=== PATIENT | male | born 1965 | race Caucasian/White ===

== ENCOUNTER 2020-11-19 16:54 | Outpatient (CLI) | payer OTHER, SELFPAY | END 2020-11-19 16:55 | disposition home or self-care (01) | LOC: ANHCOVIDVC 16:54 | PROVIDERS: PCP Family Medicine | DX: Z23 Encounter for immunization (principal) | CPT/HCPCS: 0001A; 91300 ==

== ENCOUNTER 2020-12-10 16:55 | Outpatient (CLI) | payer OTHER, SELFPAY | END 2020-12-10 16:56 | disposition home or self-care (01) | LOC: ANHCOVIDVC 16:55 | PROVIDERS: PCP Family Medicine | DX: Z23 Encounter for immunization (principal) | CPT/HCPCS: 0002A; 91300 ==

== ENCOUNTER 2024-01-25 01:19 | Day surgery (SDC) | payer OTHER, SELFPAY ==
[2024-01-12 16:31] VITALS: BMI 29.9
[2024-01-25 06:19] VITALS: BP 123/79; PULSE 50; RESP 20; TEMP 36.4; O2SAT 100
[2024-01-25] MEDS: LACTATED RINGERS 1,000 ML 150 ML IV CONT (06:31)
--- NOTE | 2024-01-25 07:18 | WPDANESEPPF ---
Anes - Initial Pre Proc Eval Procedure: Operation Date: 01/25/24 07:30 Proposed Procedures p Colonoscopy - Glen Hathaway MD Date/Time: 01/25/24 07:18 Surgeon: Glen Hathaway MD Pre Op Diagnosis: Personal history colon polyps Patient Data Age: 58 Gender: M Height: 1.73 m Weight: 94 kg Last Vital Signs Temp 97.6 F 01/25/24 06:19 Pulse 50 L 01/25/24 06:19 Resp 20 01/25/24 06:19 BP 123/79 01/25/24 06:19 Pulse Ox 100 01/25/24 06:19 O2 Del Method Room Air 01/25/24 06:19 Allergies Allergy/AdvReac Type Severity Reaction Status Date / Time No Known Allergies Allergy Verified 01/25/24 06:18 Home Medications Medication Instructions Recorded Confirmed Type rosuvastatin 10 mg tablet 10 mg PO DAILY #90 tabs 11/01/23 01/12/24 Rx peg 3350-electrolytes 236 240 ml PO Q10M #4,000 mL 01/12/24 Rx gram-22.74 gram-6.74 gram-5.86 gram solution (Golytely) Patient hx anesthesia problems: none Family hx anesthesia problems: none Results Review: All pre-operative results and documents have been reviewed as part of the pre-operative evaluation. [facility] Past Medical History Medical History Acute sinusitis BMI 27.0-27.9,adult BMI 28.0-28.9,adult BMI 29.0-29.9,adult Elevated glucose Essential (primary) hypertension Mixed hyperlipidemia Surgical History Surgical History Hx of colonoscopy Family History Family History Father Cerebrovascular accident Family history of coronary artery disease Mother Hypertension Sibling Diabetes mellitus Malignant neoplasm of prostate Other Family history of malignant neoplasm Social History Social History Years smoked: 8 Smoking status: Former smoker Tobacco type: cigarettes Second hand tobacco smoke exposure: Yes Smoking end date: 09/12/11 Alcohol intake: never Substance use: never Substance use type: does not use Do You Feel Safe in your Home?: Yes Lack of Transportation: No Lack of Food: Never True Current Housing: I Have Housing Concerned About Future Housing: No Difficulty Paying Gas/Electric Bills: No Difficulty Paying for Meds: No Currently Unemployed: No Education: Trade/Vocational Certificate Difficulty w/ Childcare or Family Care: No Living arrangements: with family Occupation/Education: occupation 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 Informed Consent: The patient's anesthetic plan and its attendant risks and benefits were discussed with the patient/family/POA. Questions were solicited and answers provided to the satisfaction of the patient/family/POA.
--- NOTE | 2024-01-25 07:34 | PM.HPGS ---
History of Present Illness History of Present Illness Consent: Risks, benefits, and alternatives have been discussed and questions answered. Patient agrees to proceed with procedure. Chief complaint: Personal history colon polyps Narrative: Azael Glez is a 58 year old male with colon polyps 5 years ago Review of Systems Review of Systems: All systems reviewed & are unremarkable except as noted in HPI and below PMFSH Past Medical History Medical History (Updated 01/25/24 @ 07:35 by Glen Hathaway MD) Acute sinusitis Adenomatous colon polyp BMI 27.0-27.9,adult BMI 28.0-28.9,adult BMI 29.0-29.9,adult Elevated glucose Essential (primary) hypertension Mixed hyperlipidemia Surgical History Surgical History Hx of colonoscopy Family History Family History Father Cerebrovascular accident Family history of coronary artery disease Mother Hypertension Sibling Diabetes mellitus Malignant neoplasm of prostate Other Family history of malignant neoplasm Social History Social History Years smoked: 8 Smoking status: Former smoker Tobacco type: cigarettes Second hand tobacco smoke exposure: Yes Smoking end date: 09/12/11 Alcohol intake: never Substance use: never Substance use type: does not use Do You Feel Safe in your Home?: Yes Lack of Transportation: No Lack of Food: Never True Current Housing: I Have Housing Concerned About Future Housing: No Difficulty Paying Gas/Electric Bills: No Difficulty Paying for Meds: No Currently Unemployed: No Education: Trade/Vocational Certificate Difficulty w/ Childcare or Family Care: No Living arrangements: with family Occupation/Education: occupation 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 Gender identity (if verbalized by the patient): Male Spiritual care concerns: No Meds Home Medications and Allergies Home Medications Medication Instructions Recorded Confirmed Type rosuvastatin 10 mg tablet 10 mg PO DAILY #90 tabs 11/01/23 01/12/24 Rx peg 3350-electrolytes 236 240 ml PO Q10M #4,000 mL 01/12/24 Rx gram-22.74 gram-6.74 gram-5.86 gram solution (Golytely) Allergies Allergy/AdvReac Type Severity Reaction Status Date / Time No Known Allergies Allergy Verified 01/25/24 06:18 Vital Signs Vital Signs - 24 hr 01/25/24 06:19 Temperature 97.6 F Pulse Rate 50 L Respiratory Rate 20 Blood Pressure 123/79 Pulse Oximetry 100 Oxygen Delivery Room Air Exam Const: General: comfortable and no acute distress HENMT: Face/Nose/Sinus: Normal nares present Eyes: General: appearance normal, both eyes and all related structures Neck: Neck: no JVD Resp: Auscultation: clear to auscultation bilaterally Cardio: Rate: regular rate Rhythm: regular rhythm GI: Inspection: non-distended GI Palp: Yes Soft to palpation Skin: General skin exam: normal color Neuro: General: gait normal Speech: normal speech Extrem: General: normal to inspection Psych: Mental Status: mental status grossly normal Assessment and Plan Assessment and plan (1) Adenomatous colon polyp: Code(s): D12.6 - Benign neoplasm of colon, unspecified Status: Acute Assessment and Plan: colonoscopy
[2024-01-25 08:04] VITALS: BP 110/61; PULSE 51; RESP 19; O2SAT 97
[2024-01-25 08:14] VITALS: BP 99/65; PULSE 51; RESP 18; O2SAT 99
[2024-01-25 08:24] VITALS: BP 110/66; PULSE 55; RESP 16; O2SAT 99
== END 2024-01-25 08:38 | disposition home or self-care (01) ==
PROVIDERS: PCP Family Medicine; Visit Provider Internal Medicine Gastroenterology
PROC: 0DJD8ZZ Inspection of Lower Intestinal Tract, Via Natural or Artificial Opening Endoscopic (ICD-10-PCS; CPT 45378; principal; 2024-01-25 07:30)
DX: Z12.11 Encounter for screening for malignant neoplasm of colon (principal); D12.0 Benign neoplasm of cecum; K63.5 Polyp of colon; K57.30 Diverticulosis of large intestine without perforation or abscess without bleeding; K64.8 Other hemorrhoids; E78.2 Mixed hyperlipidemia; Z87.891 Personal history of nicotine dependence
CPT/HCPCS: 45385; 88305; J1596; J2371; J2704; J7120

== ENCOUNTER 2025-01-18 05:19 | Emergency (ER) | payer OTHER, SELFPAY ==
--- OUTSIDE RECORDS SUMMARY | 2025-01-18 05:21 | XMS_ITS | Continuity of Care Document ---
Author Organization [facility] Address [address] [place] [address] Phone Care Team Providers Care Industrial Relations Worker Name Role Phone Kem Flowers PT Unavailable Unavailable Procedures Procedure Date Hot or Cold Pack Therapeutic Exercise Therapeutic Activities Manual Therapy Therapeutic Exercise Therapeutic Activities Therapeutic Exercise Therapeutic Activities Manual Therapy Neuromuscular Re-Ed Hot or Cold Pack Therapeutic Exercise Therapeutic Activities Therapeutic Activities Therapeutic Exercise Advance Directives Directive Yes / No Effective Date File Name No Information Encounters Encounter Description Practice Location Reason(s) For Visit Diagnoses Date Provider Providers Copied on Encounter [facility], [address], [place], [place], [id number], tel:[phone] [facility] No Information Lionel Brownlee. . Referring Provider: Christopher Dainels [address], [place], [address]. tel:[phone] [facility] [address], [place], [place], [id number], [place] tel:[phone] [facility] No Information Lionel Brownlee. . Referring Provider: Christopher Daniels [address], [place], [address]. tel:[phone] [facility], [place], [place], [id number], [place] tel:[phone] [facility] No Information Lionel Brownlee. . Referring Provider: Christopher Daniels [facility] [address], [place], [address]. tel:[phone] [facility], [address] [place] [address], [place], [place], [id number], tel:[phone] [facility] No Information Lionel Brownlee. . Referring Provider: Mack Klein [address], [place], [address]. tel:[phone] [facility], [address] [place] [address], [place], [place], [id number], tel:[phone] [facility] No Information Lionel Brownlee. . Referring Provider: Christopher Daniels [facility] [address], [place], [address]. tel:[phone] Family History Family Member Type Diagnosis Age At Onset No Information Payers Payer name Insurance type Covered republican ID Authoriza tiradha(s) CCMSI [id number] [employer] [place] [id number] Social History Type Description Quantity Date Captured Comments Sex Male Smoking Status No Information Chief Complaint And Reason For Visit No Information Reason For Referral Reason For Referral No Information History Of Present Illness Encounter Date Complaint History Of Prese nt Illness No Information Functional Status Date Functional Assessmen t No Information Instructions Date Instruction Additional Infor mation No Information Assessments Type Assessment Date No Information Patient Care Teams Name Effective Dates (start - stop) Status Members No Information
--- OUTSIDE RECORDS SUMMARY | 2025-01-18 05:21 | XMS_ITS | Clinical Summary ---
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
--- OUTSIDE RECORDS SUMMARY | 2025-01-18 05:21 | XMS_ITS | Referral Summary ---
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
[2025-01-18 05:27] VITALS: BP 155/77; PULSE 61; RESP 15; TEMP 36.8; O2SAT 100
[2025-01-18 05:49] LABS: Basophils Percent Auto 0.4 % (0.2-1.2); Eosinophils Absolute Auto 0.1 K/mm3 (0-0.3); Eosinophils Percent Auto 2.1 % (0-4.4); Hematocrit 48.8 % (42.0-52.0); Hemoglobin 15.6 g/dL (14.0-18.0); Immature Granulocyte Absolute 0.01 K/mm3 (0.00-0.031); Immature Granulocyte Percent A 0.2 % (0-0.5); Lymphocytes Absolute Auto 1.35 K/mm3 (0.9-3.2); Mean Corpuscular Hemoglobin 31.8 pg (26-34); Mean Corpuscular Volume 99.4 fl (80-100); Mean Platelet Volume 9.8 fl (7.4-10.4); Monocytes Absolute Auto 0.4 K/mm3 (0.1-0.6); Neutrophils Absolute Auto 2.8 K/mm3 (1.3-6.7); Neutrophils Percent Auto 59.3 % (45.5-73.1); Platelet Count Result 150 k/mm3 (150-375); Red Blood Count 4.91 M/mm3 (4.6-6.20); Red Cell Distribution Width 12.7 % (11.5-14.5); White Blood Count 4.7 K/mm3 (4.5-10.0)
[2025-01-18] MEDS: SODIUM CHLORIDE 0.9% IV 1,000 ML 999 ML IV CONT (05:49)
--- OUTSIDE RECORDS SUMMARY | 2025-01-18 05:49 | XMS_ITS | Referral Summary ---
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
--- OUTSIDE RECORDS SUMMARY | 2025-01-18 05:49 | XMS_ITS | Continuity of Care Document ---
Author Organization [facility] Address [address] [place] [address] Phone Care Team Providers Care Engineer And Geologist Name Role Phone Kem Flowers PT Unavailable [...] Diagnoses Date Provider Providers Copied on Encounter [facility], [address], [place], [place], [id number], tel:[phone] [facility] No Information Lionel Brownlee. . Referring Provider: Christopher Daniels [address], [place], [address]. tel:[phone] [facility] [address], [place], [place], [id number], [place] tel:[phone] [facility] No Information Lionel Brownlee. . Referring Provider: Christopher Daniels [address], [place], [address]. tel:[phone] [facility], [place], [place], [id number], [place] tel:[phone] [employer] [place] [facility] No Information Lionel Brownlee. . Referring Provider: Christopher Daniels [facility] [address], [place], [address]. tel:[phone] [facility], [address] [place] [address], [place], [place], [id number], tel:[phone] [facility] No Information Lionel Brownlee. . Referring Provider: Mack Klein [address], [place], [address]. tel:[phone] [facility], [address] [place] [address], [place], [place], [id number], tel:[phone] [facility] No Information Lionel Brownlee. . Referring Provider: Christopher Daniels [facility] [address], [place], [address]. tel:[phone] Family History Family Member Type Diagnosis Age At Onset No Information Payers Payer name Insurance type Covered democrat ID Authoriza tiradha(s) CCMSI [id number] [employer]ign SP [id number] Social History Type Description Quantity Date Captured [...]
--- OUTSIDE RECORDS SUMMARY | 2025-01-18 05:49 | XMS_ITS | Clinical Summary ---
Author Organization 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
--- NOTE | 2025-01-18 05:54 | ED.NAVMDI ---
HPI - Nausea/Vomiting/Diarrhea General Chief complaint: Nausea/Vomiting/Diarrhea Stated complaint: diarrhea Time Seen by Provider: 01/18/25 05:36 Source: patient Mode of arrival: ambulatory Limitations: no limitations History of Present Illness HPI Narrative: 59-year-old with a history of hypertension, hyperlipidemia here with the complaints of having diarrhea for last 4 days. Patient states that he tried paqo-jnd-yfcsino medication which did not help. Complains of her rectum and it abdominal cramping. Denies any recent antibiotic use. He states that he has been in and out of his the hospital as his mother was admitted for STEMI and she is now in the rehab center. He denies any fever or chills no blood in the stool. MD elicited complaint: vomiting and diarrhea Onset (ago): day(s) (4) Description of vomiting: watery Associated nausea: Yes Location of pain: diffuse Pain consistency: intermittent Quality: cramping Relieving factors: none Associated symptoms: denies other symptoms Related Data Allergies Allergy/AdvReac Type Severity Reaction Status Date / Time No Known Allergies Allergy Verified 01/18/25 05:20 Review of Systems Review of Systems: All systems reviewed & are unremarkable except as noted in HPI and below Constitutional: Constitutional: Reports no additional constitutional complaints Eyes: Eyes: Reports no additional eye complaints ENT: Reports system reviewed and no additional complaints, except as documented Cardiovascular: Cardiovascular: Reports no additional cardiovascular complaints Respiratory: Respiratory: Reports no additional respiratory complaints Gastrointestinal: Gastrointestinal: Reports as per HPI Musculoskeletal: Musculoskeletal: Reports no additional musculoskeletal complaints Integumentary/Breasts: Skin/Breast: Reports system reviewed and no additional complaints, except as [facility]u [facility] Past Medical History Medical History Adenomatous colon polyp BMI 28.0-28.9,adult Acute sinusitis BMI 29.0-29.9,adult BMI 27.0-27.9,adult Elevated glucose Essential (primary) hypertension Mixed hyperlipidemia Surgical History Surgical History Hx of colonoscopy Family History Family History Father Cerebrovascular accident Family history of coronary artery disease Mother Hypertension Sibling Diabetes mellitus Malignant neoplasm of prostate Other Family history of malignant neoplasm Social History Social History Years smoked: 8 Smoking status: Former smoker Tobacco type: cigarettes Second hand tobacco smoke exposure: Yes Smoking end date: 09/12/11 Alcohol intake: never Substance use: never Substance use type: does not use Do You Feel Safe in your Home?: Yes Lack of Transportation: No Lack of Food: Never True Current Housing: I Have Housing Concerned About Future Housing: No Difficulty Paying Gas/Electric Bills: No Difficulty Paying for Meds: No Currently Unemployed: No Education: Trade/Vocational Certificate Difficulty w/ Childcare or Family Care: No Living arrangements: with family Occupation/Education: occupation 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 HEAD: Normocephalic, atraumatic. EYES: PERRLA and EOMI. ENT: Nares clear, no rhinorrhea or epistaxis. Mucous membranes moist. NECK: Supple. CHEST: Clear to auscultation. No respiratory distress. HEART: Regular rate and rhythm. No murmur heard. Normal peripheral pulses. ABDOMEN: Soft, nontender, nondistended, normal active bowel sounds. EXTREMITIES: Normal range of motion. No edema. SKIN: Warm, dry, no rash. NEURO: No focal deficits. Alert and oriented x3. PSYCH: Normal mood and affect. Course Vital Signs Vital signs: Vital Signs Temperature 36.8 C 01/18/25 05:27 Pulse Rate 61 01/18/25 05:27 Respiratory Rate 15 01/18/25 05:27 Blood Pressure 155/77 H 01/18/25 05:27 Pulse Oximetry 100 01/18/25 05:27 Oxygen Delivery Room Air 01/18/25 05:27 Temperature 36.8 C 01/18/25 05:27 Pulse Rate 61 01/18/25 05:27 Respiratory Rate 15 01/18/25 05:27 Blood Pressure 155/77 H 01/18/25 05:27 Pulse Oximetry 100 01/18/25 05:27 Oxygen Delivery Room Air 01/18/25 05:27 MDM - Nausea/Vomiting/Diarrhea Lab Data 01/18/25 05:40 01/18/25 05:40 Labs: Lab Results 01/18/25 Range/Units 05:40 WBC 4.7 (4.5-10.0) K/mm3 RBC 4.91 (4.6-6.20) M/mm3 Hgb 15.6 (14.0-18.0) g/dL Hct 48.8 (42.0-52.0) % MCV 99.4 (80-100) fl MCH 31.8 (26-34) pg MCHC 32.0 (32-36) g/dl RDW 12.7 (11.5-14.5) % Plt Count 150 (150-375) k/mm3 MPV 9.8 (7.4-10.4) fl Immature Gran % (Auto) 0.2 (0-0.5) % Neut % (Auto) 59.3 (45.5-73.1) % Lymph % (Auto) 29.0 (18.3-44.2) % [place] % (Auto) 9.0 H (2.6-8.5) % Eos % (Auto) 2.1 (0-4.4) % Baso % (Auto) 0.4 (0.2-1.2) % Lymph # (Auto) 1.35 (0.9-3.2) K/mm3 [place] # (Auto) 0.4 (0.1-0.6) K/mm3 Eos # (Auto) 0.1 (0-0.3) K/mm3 Baso # (Auto) 0.0 (0.0-0.1) K/mm3 Abs Immat Gran (auto) 0.01 (0.00-0.031) K/mm3 Absolute Neuts (auto) 2.8 (1.3-6.7) K/mm3 Absolute Nucleated RBC 0.000 (0.0-0.012) K/mm3 Nucleated RBC % 0.0 (0.0-0.2) % Sodium Pending Potassium Pending Chloride Pending Carbon Dioxide Pending Anion Gap Pending BUN Pending Creatinine Pending Estim Creat Clear Calc Pending Estimated GFR Pending Glucose Pending Calcium Pending Total Bilirubin Pending AST Pending ALT Pending Alkaline Phosphatase Pending Total Protein Pending Albumin Pending Lipase Pending Discharge Plan Discharge Clinical Impression: Diarrhea Qualifiers: Diarrhea type: unspecified type Qualified Code(s): R19.7 - Diarrhea, unspecified Patient Disposition: Home Condition: Stable Instructions: Acute Diarrhea (ED) Additional Instructions: Drink more fluids take Imodium jyje-lxu-iqrulny. Be on a bland diet and advance as tolerated Patient Language: Arabic Prescriptions: No Action rosuvastatin 10 mg tablet 10 mg PO DAILY Qty: 90 3RF Follow-up/Referrals: Elida Parrish DO [Physician] - UNKNOWN,DOCTOR [Primary Care Provider] - Time of Disposition: 06:47
[2025-01-18 06:04] LABS: Alanine Aminotransferase 26 U/L (6-50); Albumin Level 4.4 g/dL (3.5-5.1); Alkaline Phosphatase 55 U/L (38-126); Anion Gap 9 mmol/L (4-12); Aspartate Amino Transferase 30 U/L (17-59); Blood Urea Nitrogen 17 mg/dL (9-20); Calcium 8.3 mg/dL (8.4-10.2); Carbon Dioxide 24 mmol/L (22-30); Chloride 105 mmol/L (98-107); Estimated CRCL calculation 84 ml/min; Estimated Glomerular Filt Rate > 60; Glucose 110 mg/dL (65-110); Lipase 61 U/L (23-300); Potassium 3.7 mmol/L (3.4-5.0); Sodium 138 mmol/L (137-145)
[2025-01-18 07:10] LABS: Add Urine Microscopic? YES; Appearance Urine Clear (Clear); Bacteria Urine None Seen /hpf; Bilirubin Urine Negative (Negative); Blood Urine 1+ (Negative); Color Urine Yellow (Yellow); Glucose Urine UA Negative (Negative); Ketones Urine Negative (Negative); Leukocyte Esterase Ur 1+ LEU/UL (Negative); Need Manual Microscopic Reviewed; Nitrate Urine Negative (Negative); Non Pathogenic Casts 0-2; Protein Urine Negative (Negative); RBC Urine 0-2 /hpf (0-2); Specific Grav Ur 1.016 (1.001-1.035); Squamous Epithelial Cell Urine None Seen /hpf (Few); Urobilinogen Urine 0.2 mg/dL (<2.0); WBC Urine 0-5 /hpf (0-3); pH Urine 5.5 (5.0-9.0)
[2025-01-18 07:17] VITALS: BP 141/78; PULSE 58; RESP 15; O2SAT 99
== END 2025-01-18 07:18 | disposition home or self-care (01) ==
PROVIDERS: Emergency Provider Family Medicine
DX: R19.7 Diarrhea, unspecified (principal); E78.5 Hyperlipidemia, unspecified; I10 Essential (primary) hypertension; E78.2 Mixed hyperlipidemia; Z87.891 Personal history of nicotine dependence
CPT/HCPCS: 36415; 80053; 81001; 83690; 85025; 87086; 96360; 99283; J7030